=== PATIENT | male | born 1995 | race African-American/Black ===

== ENCOUNTER 2018-04-04 12:06 | Emergency (ER) | payer MEDICAID ==
[~2018-04-04] VITALS: Ht 172.7 cm; Wt 65.0 kg
[~2018-04-04 12:06] MED LIST: DIVA-18
[2018-04-04 13:35] LABS: BASOPHILS % 0.4 % (0.0-2.0); EOSINOPHILS % 0.3 % (0.0-5.0); HEMATOCRIT. 42.9 % (42.0-52.0); HEMOGLOBIN. 14.6 g/dL (14.0-18.0); LYMPHOCYTES % 15.2 % (20.0-50.0); MEAN CORPUSCULAR HEMOGLOBIN 28.5 pg (28.0-32.0); MEAN CORPUSCULAR VOLUME 83.9 fL (80.0-94.0); MEAN PLATELET VOLUME 9.4 fl (7.4-10.4); MONOCYTES % 4.5 % (2.0-8.0); NEUTROPHILS % 79.6 % (40.0-76.0); PLATELET 178 x1000/uL (130-400); RED BLOOD CELL COUNT 5.12 mill/uL (4.7-6.1); RED CELL DISTRIBUTION WIDTH 12.9 % (11.6-14.6)
[2018-04-04 13:42] LABS: CHLORIDE 103 mEq/L (98-107)
[2018-04-04] MEDS ORDERED: VALPROATE SODIUM 1,000 MG in DEXT 5% WATER 100 ML IV ONE (15:30)
[2018-04-04 17:26] VITALS: BP 115/76
== END 2018-04-04 17:29 | disposition home or self-care (01) ==
LOC: ER 12:49
DX: R56.9 Unspecified convulsions (principal)
CPT/HCPCS: 36415; 70450; 80053; 80165; 82962; 85025; 96365; 99285; J3490; J7060